=== PATIENT | male | born 1995 | race Hispanic/Latino ===

== ENCOUNTER 2023-10-03 14:09 | Emergency (ER) | payer OTHER ==
[~2023-10-03] VITALS: Ht 185.4 cm; Wt 172.4 kg
[2023-10-03] MEDS: ONDANSETRON 4MG INJ IVP ONE ×2 (15:11→18:02)
[2023-10-03] MEDS: 0.9%NACL 1000ML 1,000 ML IV ONE (15:11)
[2023-10-03] MEDS: MORPHINE 2 MG SYG IVP ONE ×2 (15:12→18:02)
[2023-10-03 15:27] LABS: BASOPHILS # (AUTO) 0.05 K/uL (0.00-0.20); BASOPHILS % (AUTO) 0.6 % (0.0-5.0); EOSINOPHILS # (AUTO) 0.05 K/uL (0.00-0.70); EOSINOPHILS % (AUTO) 0.6 % (0.0-8.0); IMMATURE GRANULOCYTE ABSOLUTE 0.02 K/uL (0-1); LYMPHOCYTES # (AUTO) 1.6 K/uL (1.0-4.8); LYMPHOCYTES % (AUTO) 19.7 % (21.0-51.0); MEAN CORPUSCULAR HEMOGLOBIN 27.9 pg (27.0-33.0); MEAN CORPUSCULAR HGB CONC 32.8 g/dL (32.0-36.0); MEAN CORPUSCULAR VOLUME 85.1 fL (79-99); MONOCYTES # (AUTO) 0.6 K/uL (0.1-1.0); MONOCYTES % (AUTO) 7.2 % (3.0-13.0); NEUTROPHILS % (AUTO) 71.7 % (40.0-77.0); PLATELET COUNT (AUTO) 282 K/uL (130-400); RED BLOOD CELL COUNT(AUTO) 5.52 MIL/uL (4.50-6.20); RED CELL DISTRIBUTION WIDTH 13.7 % (11.0-15.5); WHITE BLOOD COUNT (AUTO) 8.3 K/uL (4.8-10.8)
[2023-10-03 15:42] LABS: POTASSIUM 4.2 mmol/L (3.5-5.1)
[2023-10-03 15:46] LABS: ALBUMIN 4.1 g/dL (3.5-5.0); BILIRUBIN,TOTAL 1.6 mg/dL (0.2-1.0); TOTAL PROTEIN, SERUM 8.5 g/dL (6.0-8.3)
[2023-10-03] MEDS ORDERED: IOHEXOL 350 MG/ML 100ML INFUS..BTL IV ONE (16:34)
[2023-10-03 17:43] LABS: APPEARANCE,URINE CLEAR (CLEAR); BILIRUBIN,URINE NEGATIVE (NEGATIVE); COLOR,URINE LIGHT-YELLOW (YELLOW); GLUCOSE, URINE (UA) NEGATIVE (NEGATIVE); KETONES,URINE NEGATIVE (NEGATIVE); LEUKOCYTE ESTERASE ,URINE NEGATIVE Leu/uL (NEGATIVE); NITRATE,URINE NEGATIVE (NEGATIVE); OCCULT BLOOD,URINE NEGATIVE (NEGATIVE); PH,URINE 6.5 (5.0-8.0); PROTEIN,URINE NEGATIVE (NEGATIVE); UROBILINOGEN,URINE 0.2 mg/dL (0.2-1.0)
[2023-10-03 17:44] LABS: ADD UA MICROSCOPIC YES
[2023-10-03 17:45] LABS: MUCUS,URINE RARE LPF (None Seen); RBC,URINE 0-1 /HPF (0-1); SQUAMOUS EPITHELIAL CELL,UR RARE /HPF (0-2); WBC,URINE 0-1 /HPF (0-1)
[2023-10-03] MEDS: KETOROLAC 30MG VIAL (30MG/ML) IVP ONE (18:02)
[2023-10-03 18:22] VITALS: BP 145/92; PULSE 71; RESP 16; O2SAT 98
[2023-10-03] MEDS ORDERED: KETO10TA2 PO (18:23)
[2023-10-03] MEDS ORDERED: ONDA4TAB10 PO (18:23)
== END 2023-10-03 18:30 | disposition home or self-care (01) ==
LOC: EDH 14:09
DX: K80.50 Calculus of bile duct without cholangitis or cholecystitis without obstruction (principal); Z79.899 Other long term (current) drug therapy
CPT/HCPCS: 99285; 74177; 96374; 76705; 96375; 96361; 80053; 83690; 85025; 83605; 81001; 36415; 96376; 93005; 84145; J2270 ×2; J7030; J2405 ×2; J1885; Q9967